=== PATIENT | male | born 1980 | race Caucasian/White ===

== ENCOUNTER 2023-05-15 13:59 | Emergency (ER) | payer OTHER, MEDICARE ==
[2023-05-15 14:21] VITALS: BP 113/77; PULSE 100; RESP 20; TEMP 98
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
== END 2023-05-15 16:28 | disposition home or self-care (01) ==
LOC: EC 13:59
DX: M54.2 Cervicalgia (principal); V89.2XXA Person injured in unspecified motor-vehicle accident, traffic, initial encounter; Y92.410 Unspecified street and highway as the place of occurrence of the external cause
CPT/HCPCS: 70450; 72125; 99284

== ENCOUNTER 2024-03-06 18:12 | Inpatient (IN) | payer MEDICARE, OTHER ==
[2024-03-06] MEDS ORDERED: VANCOMYCIN IV PER PHARMACY 1 EACH MISC MISCELLANE PRN (19:01)
[2024-03-06] MEDS: SODIUM CHLORIDE 0.9% 500 ML 500 ML IV SCH (19:11)
[2024-03-06] MEDS: PIPERACILLIN-TAZOBACTAM 3.375 GM in SODIUM CHLORIDE 0.9% 100 ML IVPB STA (19:12)
[2024-03-06] MEDS: SODIUM CHLORIDE 0.9% 2,000 ML IV ONE (19:17)
[2024-03-06] MEDS: VANCOMYCIN 1,750 MG in SODIUM CHLORIDE 0.9% 500 ML 500 ML IVPB STA (19:20)
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
[2024-03-06 19:48] LABS: Anion Gap 22 mmol/L; Blood Urea Nitrogen 35 mg/dL (9-20); Carbon Dioxide 14 mmol/L (22-30); Chloride 93 mmol/L (98-107); Glucose 243 mg/dL (74-99); Potassium 3.8 mmol/L (3.5-5.1); Sodium 129 mmol/L (137-145)
[2024-03-06 19:49] LABS: AST 66 U/L (17-59); African American GFR (CKD) 53 (>60 ml/min/1.73 sqM); Albumin 3.2 g/dL (3.5-5.0); Alkaline Phosphatase 171 U/L (38-126); Calcium 8.7 mg/dL (8.4-10.2); Non-African American GFR(CKD) 46 (>60 ml/min/1.73 sqM); Total Bilirubin 5.3 mg/dL (0.2-1.3)
[2024-03-06 19:56] LABS: ALT 49 U/L (4-49)
[2024-03-06 20:09] LABS: HCT 51.5 % (39.0-53.0); MCH 31.6 pg (25.0-35.0); MCV 95.9 fL (80.0-100.0); Mean Platelet Volume 9.8; Platelet Count 262 k/uL (150-450); RBC 5.37 m/uL (4.30-5.90); RDW 13.8 % (11.5-15.5); WBC 16.6 k/uL (3.8-10.6)
[2024-03-06 20:13] LABS: Partial Thromboplastin Time 24.1 sec (22.0-30.0); Prothrombin Time 11.4 sec (10.0-12.5)
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
[2024-03-06 21:17] LABS: Band Neutrophils % 11 %; Metamyelocytes # (M) 0.66 k/uL (0); Metamyelocytes % 4 %; Myelocytes % 3 %; Neutrophils % (M) 75 %; Nucleated Red Blood Cells 0 /100 WBC (0-0); Total Cells Counted 200
[2024-03-06 21:18] LABS: Large Platelets Present
[2024-03-06 21:19] LABS: Toxic Granulation Present; Toxic Vacuolation Present
[2024-03-06] MEDS: SODIUM CHLORIDE 0.9% 1,000 ML IV ONE ×5 (21:25→23:48)
--- NOTE | 2024-03-06 21:44 | CT ---
EXAM: CT Chest With Intravenous Contrast CLINICAL HISTORY: Trauma TECHNIQUE: Axial computed tomography images of the chest with intravenous contrast. CTDI is 15.1 mGy and DLP is 1460 mGy-cm. This CT exam was performed using one or more of the following dose reduction techniques: automated exposure control, adjustment of the mA and/or kV according to patient size, and/or use of iterative reconstruction technique. COMPARISON: No relevant prior studies available. FINDINGS: Limitations: There is respiratory artifact, which degrades image quality on multiple image slices. Lungs: Dependent subsegmental changes noted in the posterior lower lobes. No significant pulmonary contusive injury. No mass. Pleural space: Small volume bilateral hypodense pleural effusions, right greater than left with the right pleural effusion measuring approximately 1 cm. No pneumothorax. Heart: Unremarkable. No cardiomegaly. No significant pericardial effusion. No significant coronary artery calcifications. Bones/joints: No definite rib fracture, accounting for respiratory artifact. No thoracic vertebral body fracture. The sternum and included portions of the shoulders are intact. No dislocation. Soft tissues: Tracking subcutaneous emphysema is noted extending from the right lateral abdominal wall to involve the inferior right thoracic subcostal and intercostal wall musculature. There is asymmetric subcutaneous fat stranding and tracking hypoattenuating fluid extending into the intercostal wall musculature. No radiopaque foreign body identified. Vasculature: The thoracic aorta is intact without dissection or aneurysm. No periaortic abnormality. Lymph nodes: Unremarkable. No enlarged lymph nodes. Intraperitoneal space: The thoracic esophageal mucosa appears somewhat prominent, although the esophagus is decompressed with a suggestion of paraesophageal fat stranding. No obvious pneumoperitoneum. IMPRESSION: 1. Tracking subcutaneous emphysema is noted extending from the right lateral abdominal wall to involve the inferior right thoracic subcostal and intercostal wall musculature. There is asymmetric subcutaneous fat stranding and tracking hypoattenuating fluid extending into the intercostal wall musculature. Findings are most consistent with tracking injury from the abdomen. No radiopaque foreign body identified. No definite osseous fracture. 2. Small volume bilateral hypodense pleural effusions, right greater than left with the right pleural effusion measuring approximately 1 cm. Dependent subsegmental changes adjacent to the pleural effusions. No significant contusive injury suggested involving the lungs, accounting for limitations with respiratory artifact. No pneumothorax. 3. The thoracic esophageal mucosa appears somewhat prominent, although the esophagus is decompressed with a suggestion of paraesophageal fat stranding. No obvious pneumoperitoneum. The appearance may represent incidental esophagitis. The diffuse changes are atypical for traumatic injury; however, Limited esophagram may provide additional information, as clinically appropriate. EXAM: CT Abdomen and Pelvis With Intravenous Contrast CLINICAL HISTORY: Trauma TECHNIQUE: Axial computed tomography images of the abdomen and pelvis with intravenous contrast. CTDI is 15.4 mGy and DLP is 1046 mGy-cm. This CT exam was performed using one or more of the following dose reduction techniques: automated exposure control, adjustment of the mA and/or kV according to patient size, and/or use of iterative reconstruction technique. COMPARISON: No relevant prior studies available. FINDINGS: Limitations: There is respiratory artifact, which degrades image quality on multiple image slices. Lung bases: Unremarkable. No mass. No consolidation. ABDOMEN: Liver: No obvious injury involving the liver, accounting for respiratory artifact. Gallbladder and bile ducts: Unremarkable. No calcified stones. No ductal dilation. Pancreas: Unremarkable. No mass. No ductal dilation. Spleen: Unremarkable. No splenomegaly. Adrenals: Unremarkable. No mass. Kidneys and ureters: The kidneys demonstrate normal enhancement without definite evidence for acute traumatic injury, given respiratory artifact. No hydronephrosis. Stomach and bowel: The stomach is moderately distended with fluid and gas. There is prominent gas-filled small bowel loops and ascending and transverse colon in the anterior abdomen and pelvis. No significant traumatic bowel injury. No obvious focal asymmetric mucosal thickening; evaluation is markedly degraded by extensive respiratory artifact. PELVIS: Appendix: As below. The appendix lumen immediately distal to the appendicolith and retroperitoneal gas measures approximately 9.5 mm. The distal appendix extending inferiorly is normal in caliber (series 201; images 112-125 and series 202; images 54-64). Bladder: Unremarkable. No mass. Reproductive: Unremarkable as visualized. ABDOMEN and PELVIS: Intraperitoneal space: No obvious intraperitoneal pneumoperitoneum. No free intraperitoneal fluid. Bones/joints: The lumbar spine, pelvic bones and proximal femurs are intact. Soft tissues: There is extensive abnormal subcutaneous emphysema tracking along the right lateral abdominopelvic wall musculature. In addition, there is retroperitoneal gas extending along the posterior lateral aspect of the right lobe of the liver and along the lateral and posterior pararenal fascia with fat stranding. The retroperitoneal gas is most prominent inferiorly with gas along the lateral aspect of the cecum and posterior to the cecum. The gas appears to surround the proximal appendix with a regional appendicolith. The gas appears to partially surround the appendicolith and the appendix and may communicate with the lumen. There is fat stranding noted in the right lower quadrant surrounding the cecum, appendix and anterior the right iliopsoas muscle. There is subcutaneous fat stranding and hypodense fluid between the muscular layers of the right lateral abdominal wall. No well-defined loculated fluid collection or radiopaque foreign body identified. There is subcutaneous fat stranding extending to the posterior flank and superior gluteal region. There is also tracking subcutaneous emphysema extending from the right anterolateral pelvic wall to the soft tissues overlying the symphysis pubis and involving both spermatic cords with extensive gas about the scrotum and medial right proximal thigh. Vasculature: Unremarkable. No abdominal aortic aneurysm. Lymph nodes: Unremarkable. No enlarged lymph nodes. IMPRESSION: 1. There is extensive abnormal subcutaneous emphysema tracking along the right lateral abdominopelvic wall musculature. In addition, there is retroperitoneal gas extending along the posterior lateral aspect of the right lobe of the liver and along the lateral and posterior pararenal fascia with fat stranding. The retroperitoneal gas is most prominent inferiorly with gas along the lateral aspect of the cecum and posterior to the cecum. The gas appears to surround the proximal appendix with a regional appendicolith. The gas appears to partially surround the appendicolith and the appendix and may communicate with the lumen. There is fat stranding noted in the right lower quadrant surrounding the cecum, appendix and anterior the right iliopsoas muscle. Suspect penetrating injury area. However, potential traumatic contained retroperitoneal perforation of the appendix is also a consideration. 2. There is subcutaneous fat stranding and hypodense fluid between the muscular layers of the right lateral abdominal wall. No well-defined loculated fluid collection or radiopaque foreign body identified. There is subcutaneous fat stranding extending to the posterior flank and superior gluteal region. There is also tracking subcutaneous emphysema extending from the right anterolateral pelvic wall to the soft tissues overlying the symphysis pubis and involving both spermatic cords with extensive gas about the scrotum and medial right proximal thigh. 3. Accounting for limitations with extensive respiratory artifact, no definite traumatic injury involving the liver, the right kidney. No well- defined retroperitoneal hematoma. 4. There are prominent gas-filled small bowel loops and ascending and transverse colon in the anterior abdomen and pelvis. Suspect reactive enterocolitis from the traumatic changes detailed above in the region of the lateral cecum and resumed appendix. No other evidence for traumatic injury to the small or large bowel. No definite free pneumoperitoneum.
[2024-03-06] MEDS: IV FLUID CONTINUATION 1,000 ML IV ONE (21:54)
[2024-03-06] MEDS: ONDANSETRON 4 MG/2 ML VIAL IVP STA (21:59)
[2024-03-06] MEDS: DEXAMETHASONE SOD PHOSPHATE 4 MG/ML 1 ML VIAL IVP STA (21:59)
[2024-03-06] MEDS ORDERED: MIDAZOLAM 2 MG/2 ML VIAL ONE (22:00)
[2024-03-06] MEDS ORDERED: fentaNYL (PF) 50 MCG/ML 2 ML AMP ONE (22:00)
[2024-03-06] MEDS ORDERED: KETAMINE HCL IN 0.9 % NACL 50 MG/5 ML SYRINGE ONE (22:00)
[2024-03-06] MEDS ORDERED: NEOSTIGMINE 1 MG/ML 10 ML VIAL ONE (22:00)
[2024-03-06] MEDS ORDERED: HYDROmorphone (PF) 1 MG/ML ONE (22:00)
[2024-03-06] MEDS ORDERED: LIDOCAINE 1% INJ 10MG/ML (20 ML MDV) ONE (22:00)
[2024-03-06] MEDS ORDERED: GLYCOPYRROLATE 0.2 MG/ML 2 ML VIAL ONE (22:00)
[2024-03-06] MEDS ORDERED: PROPOFOL 10 MG/ML 20 ML VIAL IV ONE (22:00)
[2024-03-06] MEDS ORDERED: SUCCINYLCHOLINE CHLORIDE 200 MG/10 ML VIAL IV ONE (22:00)
[2024-03-06] MEDS ORDERED: ROCURONIUM 10 MG/ML (5 ML VIAL) IV ONE (22:00)
--- NOTE | 2024-03-06 22:06 | P.GSCN ---
History of Present Illness Consult date: 03/06/24 Reason for Consult: Jacklyn's gangrene History of present illness: This is a 43-year-old male sustained trauma to his scrotum approximately 9 days ago, has been having progressively worsening pain over the past 9 days, now is having intractable pain along the scrotum and extending all the way up to the retroperitoneum. Indicates pain is associated with nausea, and chills. No previous scrotal or inguinal surgeries. 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 Patient does have developmental delay, thus history is limited. He denies any gross hematuria or dysuria. He has been able to void since his injury Review of Systems - Constitutional Reports chills, Reports weakness, Denies fever - Cardiovascular Denies chest pain, Denies shortness of breath - Respiratory Denies cough, Denies 7 - Gastrointestinal Reports abdominal pain, Denies nausea, Denies vomiting - Genitourinary Reports flank pain, Denies dysuria Past Medical History Past Medical History: No Reported History History of Any Multi-Drug Resistant Organisms: None Reported Past Surgical History: Adenoidectomy, Tonsillectomy Smoking Status: Never smoker Past Alcohol Use History: None Reported Past Drug Use History: None Reported Medications and Allergies Allergies Allergy/AdvReac Type Severity Reaction Status Date / Time No Known Allergies Allergy Verified 05/15/23 14:21 Surgical - Exam Vital Signs Temp Pulse Resp Pulse Ox 97.7 F 148 H 18 94 L 03/06/24 18:26 03/06/24 18:26 03/06/24 18:26 03/06/24 18:26 - General no distress, moderate pain - Eyes normal ocular movement, no pale - ENT normal nares, normal mucosa - Respiratory normal expansion, normal respiratory effort - Abdomen Abdomen: soft, tender (Right quadrant of the abdomen extending into the flank) - Genitourinary Black necrotic scrotum, unable to palpate the testicles, fluctuance and induration and crepitus was palpated along the bilateral scrotum Results - Labs 03/06/24 19:01 03/06/24 19:01 Abnormal Lab Results - Last 24 Hours (Table) 03/06/24 03/06/24 03/06/24 Range/Units 19:01 19:01 19:01 WBC 16.6 H (3.8-10.6) k/uL Neutrophils # (Manual) 14.20 H (1.3-7.7) k/uL Metamyelocytes # (Man) 0.66 H (0) k/uL Myelocytes # (Manual) 0.50 H (0) k/uL Sodium 129 L (137-145) mmol/L Chloride 93 L (98-107) mmol/L Carbon Dioxide 14 L (22-30) mmol/L BUN 35 H (9-20) mg/dL Creatinine 1.79 H (0.66-1.25) mg/dL Glucose 243 H (74-99) mg/dL Plasma Lactic Acid Maxim 8.3 H* (0.7-2.0) mmol/L Total Bilirubin 5.3 H (0.2-1.3) mg/dL AST 66 H (17-59) U/L Alkaline Phosphatase 171 H (38-126) U/L Total Protein 6.0 L (6.3-8.2) g/dL Albumin 3.2 L (3.5-5.0) g/dL Diabetes panel 03/06/24 Range/Units 19:01 Sodium 129 L (137-145) mmol/L Potassium 3.8 (3.5-5.1) mmol/L Chloride 93 L (98-107) mmol/L Carbon Dioxide 14 L (22-30) mmol/L BUN 35 H (9-20) mg/dL Creatinine 1.79 H (0.66-1.25) mg/dL Glucose 243 H (74-99) mg/dL Calcium 8.7 (8.4-10.2) mg/dL AST 66 H (17-59) U/L ALT 49 (4-49) U/L Alkaline Phosphatase 171 H (38-126) U/L Total Protein 6.0 L (6.3-8.2) g/dL Albumin 3.2 L (3.5-5.0) g/dL Calcium panel 03/06/24 Range/Units 19:01 Calcium 8.7 (8.4-10.2) mg/dL Albumin 3.2 L (3.5-5.0) g/dL Pituitary panel 03/06/24 Range/Units 19:01 Sodium 129 L (137-145) mmol/L Potassium 3.8 (3.5-5.1) mmol/L Chloride 93 L (98-107) mmol/L Carbon Dioxide 14 L (22-30) mmol/L BUN 35 H (9-20) mg/dL Creatinine 1.79 H (0.66-1.25) mg/dL Glucose 243 H (74-99) mg/dL Calcium 8.7 (8.4-10.2) mg/dL Adrenal panel 03/06/24 Range/Units 19:01 Sodium 129 L (137-145) mmol/L Potassium 3.8 (3.5-5.1) mmol/L Chloride 93 L (98-107) mmol/L Carbon Dioxide 14 L (22-30) mmol/L BUN 35 H (9-20) mg/dL Creatinine 1.79 H (0.66-1.25) mg/dL Glucose 243 H (74-99) mg/dL Calcium 8.7 (8.4-10.2) mg/dL Total Bilirubin 5.3 H (0.2-1.3) mg/dL AST 66 H (17-59) U/L ALT 49 (4-49) U/L Alkaline Phosphatase 171 H (38-126) U/L Total Protein 6.0 L (6.3-8.2) g/dL Albumin 3.2 L (3.5-5.0) g/dL Assessment and Plan Assessment: 43-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 Discussed with him and his Sister Leonela he is christiano require surgical debridement of the scrotum and possibly the abdominal wall. Discussed his hernia is quite extensive and he is will get require multiple debridements to address this. Postoperative course was discussed with both of them in details. Discussed the rationale of doing this is to control the ascending infection, but he will require a prolonged hospitalization from this -N.p.o. -OR for scrotal debridement and possible abdominal wall debridement
--- NOTE | 2024-03-07 00:11 | P.OP ---
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 Discussed with him and his Sister Leonela he is christiano require surgical debridement of the scrotum and possibly the abdominal wall. Discussed his hernia is quite extensive and he is will get require multiple debridements to address this. Postoperative course was discussed with both of them in details. Discussed the rationale of doing this is to control the ascending infection, but he will require a prolonged hospitalization from this Description of Procedure: To the operating room, general anesthesia was induced. He was prepped and draped in sterile fashion and placed in a dorsolithotomy position. At this point the scrotum was examined and it was completely necrotic and black. Next 16 Danish Cortez was placed with return of clear urine next incision was made along the discolored portion of the scrotum, the incision was carried until healthy bleeding was encountered, the entire scrotal wall on both sides was completely excised exposing both testicles. There was necrotic tissue involving tissue along the cord on both sides, this was completely debrided all the way down to the internal ring on both sides. In addition there was necrotic tissue along the right back region which was also debrided down to healthy bleeding, and this extended all the way down to the contralateral side of the pubis which was also completely debrided down to healthy bleeding, the penile skin was not involved thus it was not excised. Testicle on the right did appear slightly dusky but was still viable the left testicle was within normal limits. At this time there was additional necrotic tissue along the right lower quadrant of the abdomen, this was dissected down, but the skin was viable thus it was not resected, but all the necrotic tissue along the right lower quadrant of the abdomen was completely debrided. At this time I made a counterincision at the right lower quadrant skin and a Fernando was placed from the scrotal cavity down to the right lower quadrant abdominal incision and this was secured with 2-0 nylon. At this time all necrotic tissue was completely dissected. Using the Simpulse the incision was completely irrigated. All points of bleeding was controlled with cautery. At this time a rectal exam was performed which showed no evidence of rectal involvement, and the urethra was intact. At this point a sterile dressing was applied throughout the scrotum. At this point the right flank and the right lower quadrant was evaluated there was edema and erythema involving that region, but there was no crepitus or necrotic tissue appreciated thus this was not resected. Dr. Kaiser was informed over the phone of the patient, and a consult was placed for him to evaluate the patient in the a.m. . At this time the patient was extubated in guarded position and taken to the ICU.
[2024-03-07 01:18] LABS: Glucose,Whole Blood 111 mg/dL (70-110)
[2024-03-07] MEDS: metroNIDAZOLE-NS PMX 500 MG in SALINE 1 100ML.BAG IVPB STA (01:29)
[2024-03-07] MEDS: ONDANSETRON 4 MG/2 ML VIAL IM STA (01:30)
[2024-03-07 01:36] LABS: ALT 28 U/L (4-49); AST 50 U/L (17-59); African American GFR (CKD) >90 (>60 ml/min/1.73 sqM); Albumin 1.9 g/dL (3.5-5.0); Alkaline Phosphatase 99 U/L (38-126); Anion Gap 8 mmol/L; Blood Urea Nitrogen 29 mg/dL (9-20); Carbon Dioxide 16 mmol/L (22-30); Chloride 109 mmol/L (98-107); Glucose 121 mg/dL (74-99); Non-African American GFR(CKD) >90 (>60 ml/min/1.73 sqM); Potassium 4.1 mmol/L (3.5-5.1); Sodium 133 mmol/L (137-145); Total Bilirubin 3.8 mg/dL (0.2-1.3); Total Protein 4.1 g/dL (6.3-8.2)
[2024-03-07 01:58] LABS: Calcium 6.4 mg/dL (8.4-10.2)
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
[2024-03-07 02:15] LABS: HCT 41.7 % (39.0-53.0); MCHC 32.9 g/dL (31.0-37.0); MCV 94.5 fL (80.0-100.0); Mean Platelet Volume 8.8; Platelet Count 153 k/uL (150-450); RBC 4.41 m/uL (4.30-5.90); RDW 13.5 % (11.5-15.5); WBC 8.7 k/uL (3.8-10.6)
[2024-03-07] MEDS: PIPERACILLIN-TAZOBACTAM 3.375 GM in SODIUM CHLORIDE 0.9% 100 ML IVPB SCH (02:22)
--- NOTE | 2024-03-07 02:26 | XR ---
EXAM: XR Chest, 1 View CLINICAL HISTORY: Hypoxia TECHNIQUE: Frontal view of the chest. COMPARISON: CT chest with contrast performed at 1943 hrs. FINDINGS: Lungs: Slightly diminished lung lines with curvilinear changes noted in the right infrahilar region and left lung base. Pleural space: Unremarkable. No pneumothorax. No large pleural effusion. Heart: Unremarkable. No cardiomegaly. Mediastinum: No significant abnormality identified. The trachea is midline. Bones/joints: Unremarkable. No acute fracture. Soft tissues: The tracking subcutaneous emphysema noted on the previous chest CT is not clearly identified radiographically. Upper abdomen: No definite pneumoperitoneum underlying the hemidiaphragms. IMPRESSION: Slightly diminished lung lines with curvilinear changes noted in the right infrahilar region and left lung base. Suspect atelectasis. No pleural effusion or pneumothorax. No radiographic evidence for florid CHF.
[2024-03-07 02:31] LABS: HGB 13.7 gm/dL (13.0-17.5)
[2024-03-07 03:54] LABS: Band Neutrophils % 26 %; Eosinophils # (M) 0.09 k/uL (0-0.7); Lymphocytes # (M) 0.44 k/uL (1.0-4.8); Metamyelocytes # (M) 0.09 k/uL (0); Metamyelocytes % 1 %; Monocytes # (M) 0.52 k/uL (0-1.0); Neutrophils % (M) 63 %; Nucleated Red Blood Cells 0 /100 WBC (0-0); Total Cells Counted 200
[2024-03-07 03:58] LABS: Toxic Vacuolation Present
[2024-03-07 04:52] LABS: African American GFR (CKD) >90 (>60 ml/min/1.73 sqM); Non-African American GFR(CKD) >90 (>60 ml/min/1.73 sqM)
[2024-03-07] MEDS: metroNIDAZOLE-NS PMX 500 MG in SALINE 1 100ML.BAG IVPB SCH (05:42)
[2024-03-07 06:14] LABS: ABG Base Excess -4.7 mmol/L; ABG HCO3 18 mmol/L (21-25); ABG Oxygen Saturation 96.3 % (94-97); ABG PCO2 28 mmHg (35-45); ABG PH 7.43 (7.35-7.45); ABG PO2 80 mmHg (83-108); ABG TCO2 19 mmol/L (19-24); Allen Test Performed? Yes
[2024-03-07] MEDS: HYDROmorphone 0.5 MG/0.5 ML SYRINGE IVP PRN (06:29)
[2024-03-07] MEDS: VANCOMYCIN 1,750 MG in SODIUM CHLORIDE 0.9% 500 ML 500 ML IVPB SCH (06:45)
[2024-03-07] MEDS: ACETAMINOPHEN TAB 325 MG TAB PO PRN (09:05)
[2024-03-07] MEDS: HYDROmorphone 1 MG/ML 1 ML SYRINGE IVP PRN (10:10)
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
[2024-03-07] MEDS: LEVOTHYROXINE 112 MCG TAB PO SCH (12:54)
[2024-03-07] MEDS: DEXTROSE 5% IN WATER 1,000 ML with SODIUM BICARB (1 MEQ/ML) 100 ML IV SCH (14:27)
[2024-03-07] MEDS: ENOXAPARIN 40 MG/0.4 ML SYRINGE SQ SCH (14:28)
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
[2024-03-07] MEDS: VANCOMYCIN 2,000 MG in SODIUM CHLORIDE 0.9% 500 ML 500 ML IVPB SCH (16:50)
[2024-03-07] MEDS: AMPICILLIN-SULBACTAM 3 GM in SODIUM CHLORIDE 0.9% 100 ML IVPB SCH (19:09)
[2024-03-07] MEDS: LACTATED RINGERS 1,000 ML IV SCH (21:18)
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
[2024-03-08 00:05] VITALS: TEMP 98.9
[2024-03-08 00:40] LABS: Appearance,Urine Cloudy (Clear); Bacteria,Urine Rare /hpf; Bilirubin,Urine 2+ (Negative); Blood,Urine Moderate (Negative); Color,Urine Orange; Glucose,Urine (UA) Negative (Negative); Ketones,Urine Negative (Negative); Leukocyte Esterase,Urine Trace (Negative); Mucus,Urine Rare /hpf; Nitrite,Urine Negative (Negative); PH, Urine 6.5 (5.0-8.0); Protein,Urine 1+ (Negative); RBC,Urine 1 /hpf (0-5); Specific Gravity,Urine 1.031 (1.001-1.035); WBC,Urine 2 /hpf (0-5)
[2024-03-08 02:10] VITALS: BP 120/79; PULSE 131; RESP 38
[2024-03-08] MEDS ORDERED: VANCOMYCIN TROUGH DUE 1 EACH MISC MISCELLANE ONE (07:00)
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
== END 2024-03-08 02:25 | disposition short-term general hospital (02) | DRG 853 ==
LOC: EC 18:12 → 2SICU 21:10
PROVIDERS: ADMIT Hospitalist; ATTEND Hospitalist
PROC: 0JB80ZZ Excision of Abdomen Subcutaneous Tissue and Fascia, Open Approach (ICD-10-PCS; principal; 2024-03-07)
PROC: 0VB50ZX Excision of Scrotum, Open Approach, Diagnostic (ICD-10-PCS; principal; 2024-03-07)
PROC: 5A09357 Assistance with Respiratory Ventilation, Less than 24 Consecutive Hours, Continuous Positive Airway Pressure (ICD-10-PCS; 2024-03-07)
DX: A41.9 Sepsis, unspecified organism (principal); J96.01 Acute respiratory failure with hypoxia; N17.0 Acute kidney failure with tubular necrosis; R65.21 Severe sepsis with septic shock; E11.52 Type 2 diabetes mellitus with diabetic peripheral angiopathy with gangrene; E87.20 Acidosis, unspecified; T79.7XXA Traumatic subcutaneous emphysema, initial encounter; E87.1 Hypo-osmolality and hyponatremia; I95.9 Hypotension, unspecified; E66.9 Obesity, unspecified; N49.2 Inflammatory disorders of scrotum; N50.89 Other specified disorders of the male genital organs; N18.30 Chronic kidney disease, stage 3 unspecified; E86.1 Hypovolemia; E03.9 Hypothyroidism, unspecified; E88.09 Other disorders of plasma-protein metabolism, not elsewhere classified; G31.84 Mild cognitive impairment of uncertain or unknown etiology; V18 Pedal cycle rider injured in noncollision transport accident; Z68.32 Body mass index [BMI] 32.0-32.9, adult; Z79.890 Hormone replacement therapy; Z79.899 Other long term (current) drug therapy; N40.0 Benign prostatic hyperplasia without lower urinary tract symptoms
CPT/HCPCS: 36415; 36600; 71045; 71260; 74177; 76870; 80053; 81001; 82565; 82805; 83605; 84145; 85025; 85610; 85730; 87040; 87070; 87075; 87077; 87186; 87205; 93005; 93975; 94660; 96365; 96366; 96375; 99291